=== PATIENT | male | born 1995 | race African-American/Black ===

== ENCOUNTER 2024-12-02 13:59 | Emergency (ER) | payer MEDICAID ==
[~2024-12-02] VITALS: Ht 190.5 cm; Wt 108.8 kg
[2024-12-02 14:13] VITALS: O2SAT 100
[2024-12-02 14:25] VITALS: BP 138/89; PULSE 78; RESP 16; TEMP 97.9; O2SAT 96
[2024-12-03] MEDS ORDERED: CYCL5TAB3 MT (13:37)
[2024-12-03] MEDS ORDERED: IBUP-2030 MT (13:37)
== END 2024-12-02 19:46 | disposition left against medical advice (07) ==
LOC: ER 13:59
DX: M54.50 Low back pain, unspecified (principal); Z53.21 Procedure and treatment not carried out due to patient leaving prior to being seen by health care provider

== ENCOUNTER 2024-12-03 10:23 | Emergency (ER) | payer MEDICAID ==
[~2024-12-03] VITALS: Ht 190.5 cm; Wt 108.0 kg
[2024-12-03] MEDS ORDERED: HYDROCODONE/ACETAMINOPHEN 10/325MG TABLET PO ONE (12:30)
[2024-12-03] MEDS ORDERED: KETOROLAC 30MG/ML VIAL IM ONE (12:30)
[2024-12-03] MEDS ORDERED: IBUP-2030 MT (13:37)
[2024-12-03] MEDS ORDERED: CYCL5TAB3 MT (13:37)
[2024-12-03] MEDS: KETOROLAC 30MG/ML VIAL IM NR (14:16)
[2024-12-03] MEDS: HYDROCODONE/ACETAMINOPHEN 10/325MG TABLET PO NR (14:16)
[2024-12-03 14:23] VITALS: BP 133/78; PULSE 88; RESP 18; TEMP 37.05852; O2SAT 98
== END 2024-12-03 14:25 | disposition home or self-care (01) ==
LOC: ER 11:18
DX: S39.012A Strain of muscle, fascia and tendon of lower back, initial encounter (principal); V43.62XA Car passenger injured in collision with other type car in traffic accident, initial encounter; Y93.89 Activity, other specified; Y92.410 Unspecified street and highway as the place of occurrence of the external cause; Y99.8 Other external cause status
CPT/HCPCS: 99283; 72100; 96372; J1885

== ENCOUNTER 2024-12-12 09:52 | Emergency (ER) | payer MEDICAID ==
[~2024-12-12] VITALS: Ht 193 cm; Wt 108.0 kg
[~2024-12-12 09:52] MED LIST: CYCL5TAB3 MT; IBUP-2030 MT
[2024-12-12 10:07] VITALS: BP 149/80; PULSE 67; RESP 16; TEMP 98.3; O2SAT 98
[2024-12-12] MEDS ORDERED: ACET-2708 MT (10:28)
== END 2024-12-12 13:03 | disposition home or self-care (01) ==
LOC: ER 09:52
DX: M54.50 Low back pain, unspecified (principal)
CPT/HCPCS: 99282

== ENCOUNTER 2025-07-09 09:34 | Emergency (ER) | payer MEDICAID ==
[~2025-07-09] VITALS: Ht 190.5 cm; Wt 130.0 kg
[~2025-07-09 09:34] MED LIST changes: +ACET-2708 MT
[2025-07-09 09:38] VITALS: O2SAT 98
[2025-07-09 09:42] VITALS: BP 131/76; PULSE 87; RESP 16; TEMP 37; O2SAT 96
[2025-07-09 10:46] LABS: INFLUENZA TYPE A Presumptive Negative (Pres. Neg.); INFLUENZA TYPE B Presumptive Negative (Pres. Neg.)
[2025-07-09 10:47] LABS: RESPIRATORY SYNCYTIAL VIRUS Not Detected (Not Detectd)
[2025-07-09] MEDS: IBUPROFEN 600MG TABLET PO ONE (10:53)
[2025-07-09] MEDS ORDERED: DEXT15LI31 MT (11:17)
== END 2025-07-09 11:23 | disposition home or self-care (01) ==
LOC: ER 09:34
DX: B34.9 Viral infection, unspecified (principal); Z20.822 Contact with and (suspected) exposure to COVID-19
CPT/HCPCS: 71045; 87420; 87426; 87804; 99284